=== PATIENT | male | born 1975 | race Caucasian/White ===

== ENCOUNTER 2017-11-15 22:35 | Emergency (ER) | payer MEDICAID ==
[~2017-11-15] VITALS: Ht 180.3 cm; Wt 102.3 kg
[~2017-11-15 22:35] MED LIST: BENZ-16 PO
[2017-11-15 22:47] VITALS: BP 143/88
== END 2017-11-15 23:41 | disposition home or self-care (01) ==
LOC: ER 22:35
DX: K40.20 Bilateral inguinal hernia, without obstruction or gangrene, not specified as recurrent (principal); I10 Essential (primary) hypertension; Z88.6 Allergy status to analgesic agent; Z79.899 Other long term (current) drug therapy
CPT/HCPCS: 74176; 99284

== ENCOUNTER 2019-03-20 21:32 | Emergency (ER) | payer MEDICAID ==
[~2019-03-20] VITALS: Ht 180.3 cm; Wt 102.3 kg
[~2019-03-20 21:32] MED LIST changes: +CIPR7.5D RIGHT EAR
[2019-03-20] MEDS ORDERED: HYDR25SU48 RC (22:53)
[2019-03-20] MEDS ORDERED: PHEN57OI23 PR (22:53)
[2019-03-20] MEDS ORDERED: acetaminophen 325mg tablet PO ONE (22:55)
[2019-03-20] MEDS ORDERED: aspirin 325mg tablet PO ONE (22:55)
[2019-03-20 23:09] VITALS: BP 165/95
== END 2019-03-20 23:14 | disposition home or self-care (01) ==
LOC: ER 21:32
DX: K64.4 Residual hemorrhoidal skin tags (principal); Z88.6 Allergy status to analgesic agent; Z88.8 Allergy status to other drugs, medicaments and biological substances; Z79.899 Other long term (current) drug therapy
CPT/HCPCS: 99283

== ENCOUNTER 2021-08-02 22:32 | Emergency (ER) | payer MEDICAID ==
[~2021-08-02] VITALS: Ht 180.3 cm; Wt 91.8 kg
[~2021-08-02 22:32] MED LIST changes: +PHEN57OI23 PR
[2021-08-02 23:15] VITALS: BP 154/105
[2021-08-02] MEDS ORDERED: diphenhydrAMINE 25mg capsule PO ONE (23:40)
== END 2021-08-02 23:57 | disposition home or self-care (01) ==
LOC: ER 22:33
DX: R09.89 Other specified symptoms and signs involving the circulatory and respiratory systems (principal); Z20.822 Contact with and (suspected) exposure to COVID-19; R43.8 Other disturbances of smell and taste; Z88.6 Allergy status to analgesic agent; Z88.1 Allergy status to other antibiotic agents; Z79.2 Long term (current) use of antibiotics; Z79.899 Other long term (current) drug therapy
CPT/HCPCS: 36415; 99283; Q0163; U0003; U0005

== ENCOUNTER 2021-11-30 00:16 | Emergency (ER) | payer MEDICAID ==
[~2021-11-30] VITALS: Ht 180.3 cm; Wt 94.5 kg
[2021-11-30 00:45] VITALS: BP 158/110
--- NOTE | 2021-11-30 01:16 | NUR ---
Pt roomed to bed 8. Warm blanket and pillow provided. Pt pink, no acute/resp distress. Bed in lowest position, wheels locked, rail 2/2 up. Pt laying supine. Pt able to reposition self prn. Will continue to monitor for acute changes and needs.
[2021-11-30] MEDS ORDERED: PRAZ2CAP2 PO (01:22)
[2021-11-30] MEDS ORDERED: QUET300T72 PO (01:22)
[2021-11-30] MEDS ORDERED: DIVA500T9 PO (01:22)
[2021-11-30] MEDS ORDERED: QUET300T20 PO (01:22)
[2021-11-30] MEDS ORDERED: PROP20TA6 PO (01:22)
[2021-11-30] MEDS ORDERED: ZOLP5TAB8 PO (01:22)
[2021-11-30] MEDS ORDERED: PRAZ1CAP5 PO (01:22)
[2021-11-30] MEDS ORDERED: KEN0.1O TOP (01:22)
[2021-11-30] MEDS ORDERED: GABA-530 PO (01:22)
[2021-11-30] MEDS ORDERED: GENT5DRO4 EACHEYE (01:22)
[2021-11-30] MEDS ORDERED: FLUV100T21 PO (01:22)
[2021-11-30] MEDS ORDERED: proparacaine 0.5% ophthalmic drops 15ml RIGHTEYE ONE (01:35)
[2021-11-30] MEDS ORDERED: gentamicin 0.3% ophthalmic drops 5ML EACHEYE ONE (01:35)
--- NOTE | 2021-11-30 01:54 | NUR ---
Pt pink, no acute/resp distress. Bed in lowest position, wheels locked, rail 2/2 up. Pt laying supine. Pt able to reposition self prn. Will continue to monitor for acute changes and needs.
== END 2021-11-30 02:40 | disposition home or self-care (01) ==
LOC: ER 00:17
DX: H10.9 Unspecified conjunctivitis (principal); Z20.822 Contact with and (suspected) exposure to COVID-19; H10.021 Other mucopurulent conjunctivitis, right eye; Z88.6 Allergy status to analgesic agent; Z88.1 Allergy status to other antibiotic agents; Z79.2 Long term (current) use of antibiotics; Z79.899 Other long term (current) drug therapy
CPT/HCPCS: 87502; 87503; 87635; 99283; C9803

== ENCOUNTER 2021-12-05 00:15 | Emergency (ER) | payer MEDICAID ==
[~2021-12-05] VITALS: Ht 180.3 cm; Wt 95.5 kg
[~2021-12-05 00:15] MED LIST changes: +DIVA500T9 PO; +FLUV100T21 PO; +GABA-530 PO; +GENT5DRO4 EACHEYE; +KEN0.1O TOP; +PRAZ1CAP5 PO; +PRAZ2CAP2 PO; +PROP20TA6 PO; +QUET300T20 PO; +QUET300T72 PO; +ZOLP5TAB8 PO
[2021-12-05] MEDS ORDERED: predniSONE 20 mg tablet PO ONE (02:35)
[2021-12-05] MEDS ORDERED: ACYC-129 PO (02:37)
[2021-12-05 03:18] VITALS: BP 141/93
== END 2021-12-05 03:19 | disposition home or self-care (01) ==
LOC: ER 00:16
DX: R21 Rash and other nonspecific skin eruption (principal); H92.02 Otalgia, left ear; Z88.6 Allergy status to analgesic agent; Z88.1 Allergy status to other antibiotic agents; Z79.899 Other long term (current) drug therapy
CPT/HCPCS: 99283; J7512

== ENCOUNTER 2023-03-29 22:53 | Emergency (ER) | payer MEDICAID ==
[~2023-03-29] VITALS: Ht 180.3 cm; Wt 75.0 kg
[~2023-03-29 22:53] MED LIST changes: -GENT5DRO4 EACHEYE; +GENT5DRO7 EACHEYE; -QUET300T72 PO; +QUET300T91 PO
[2023-03-30 00:13] LABS: ALANINE AMINOTRANSFERASE 10 U/L (12-78); ALBUMIN 3.9 G/DL (3.4-5.0); ALKALINE PHOSPHATASE 78 IU/L (46-116); ANION GAP 11 (8-16); ASPARTATE AMINO TRANSFERASE 14 U/L (10-37); BILIRUBIN,TOTAL 0.4 MG/DL (0.1-1.0); BLOOD UREA NITROGEN 16 MG/DL (7-18); BUN/CREATININE RATIO 15.1 (10.0-20.0); CALCIUM 9.3 MG/DL (8.5-10.1); CHLORIDE 106 MMOL/L (99-107); CREATININE 1.06 MG/DL (0.60-1.10); ETHANOL < 10 MG/DL (<10); GLUCOSE 123 MG/DL (70-104); POTASSIUM 3.3 MMOL/L (3.5-5.1); SODIUM 142 MMOL/L (135-145); TOTAL CARBON DIOXIDE 25.1 MMOL/L (24-32); TOTAL PROTEIN 7.7 G/DL (6.4-8.2); eCRCL 91 ML/MIN; eGFR 75 ML/MIN
[2023-03-30 00:36] LABS: BASOPHILS % (AUTO) 0.5 % (0-1); EOSINOPHILS % (AUTO) 0 % (0-6); HEMATOCRIT 41.2 % (42.0-52.0); LYMPHOCYTES # (AUTO) 1.6 X10'3 (1.1-4.8); LYMPHOCYTES % (AUTO) 21.5 % (21-51); MEAN CORPUSCULAR VOLUME 79.5 FL (78-98); MEAN PLATELET VOLUME 8.1 FL (7.4-10.4); MONOCYTES # (AUTO) 0.5 X10'3 (0-0.9); MONOCYTES % (AUTO) 6.5 % (2-12); NEUTROPHILS # (AUTO) 5.4 X10'3 (1.8-7.7); NEUTROPHILS % (AUTO) 71.5 % (42-75); PLATELET COUNT 201 X10'3 (140-440); RED BLOOD COUNT 5.18 X10'6 (4.70-6.10); RED CELL DISTRIBUTION WIDTH 14.8 % (11.5-14.5); WHITE BLOOD COUNT 7.5 X10'3 (4.5-11.0)
[2023-03-30] MEDS ORDERED: temazepam 15mg capsule PO STA (02:03)
[2023-03-30] MEDS ORDERED: QUET300T2 PO (02:03)
[2023-03-30 05:53] VITALS: BP 140/86; PULSE 90; TEMP 98.6; O2SAT 99
--- NOTE | 2023-03-30 12:00 | NUR ---
Patient eating a sandwich. No distress observed. Continue to monitor.
[2023-03-30 12:20] LABS: URINE AMPHETAMINE SCREEN NEGATIVE (Neg); URINE BARBITUATE SCREEN NEGATIVE (Neg); URINE BENZODIAZEPINES SCREEN NEGATIVE (Neg); URINE CANNABINOID SCREEN NEGATIVE (Neg); URINE COCAINE SCREEN NEGATIVE (Neg); URINE METHADONE SCREEN NEGATIVE (Neg); URINE OPIATE SCREEN NEGATIVE (Neg); URINE PHENCYCLIDINE SCREEN NEGATIVE (Neg)
[2023-03-30 12:21] LABS: BILIRUBIN,URINE NEGATIVE (Neg); CLARITY,URINE SLIGHTLY CLOUDY (Clear); COLOR,URINE YELLOW (Yellow); GLUCOSE, URINE NEGATIVE (Neg); KETONES,URINE NEGATIVE (Neg); LEUKOCYTE ESTERASE ,URINE NEGATIVE (Neg); NITRITES, URINE NEGATIVE (Neg); OCCULT BLOOD,URINE NEGATIVE (Neg); PROTEIN,URINE NEGATIVE (Neg); UROBILINOGEN,URINE 0.2 E.U/dL (0.2-1.0)
[2023-03-30 12:23] LABS: UA COLLECTION TYPE CLN CATCH MIDSTREAM
[2023-03-30 12:25] VITALS: RESP 16
[2023-03-30 12:36] LABS: BACTERIA,URINE FEW /HPF (Neg); MUCUS STRANDS MANY /LPF (Neg); RBC,URINE NONE SEEN /HPF (0-2); SQUAMOUS EPITHELIAL CELL,UR FEW /LPF (FEW); WBC,URINE 0-4 /HPF (0-4)
--- NOTE | 2023-03-30 12:53 | NUR ---
Packet faxed to [facility].
--- NOTE | 2023-03-30 13:44 | NUR ---
Patient eating his late lunch. No distress observed. Continue to monitor.
--- NOTE | 2023-03-30 13:50 | NUR ---
Ronak [facility], evaluating patient. No distress observed. Continue to monitor.
[2023-03-30] MEDS ORDERED: quetiapine fumarate ER 300mg tablet PO SCH (21:00)
== END 2023-03-30 14:00 | disposition home or self-care (01) ==
LOC: EEVIPCON 22:54 → ER 22:54
DX: F32.A Depression, unspecified (principal); Z20.822 Contact with and (suspected) exposure to COVID-19; R11.10 Vomiting, unspecified; R45.851 Suicidal ideations; Z88.8 Allergy status to other drugs, medicaments and biological substances; Z88.1 Allergy status to other antibiotic agents; Z79.899 Other long term (current) drug therapy; G47.9 Sleep disorder, unspecified
CPT/HCPCS: 36415; 80053; 80305; 80320; 81001; 85025; 87811; 99284

== ENCOUNTER 2025-07-21 21:22 | Emergency (ER) | payer MEDICAID ==
[~2025-07-21 21:22] MED LIST changes: -BENZ-16 PO; -CIPR7.5D RIGHT EAR; -DIVA500T9 PO; -FLUV100T21 PO; -GABA-530 PO; -GENT5DRO7 EACHEYE; -KEN0.1O TOP; -PHEN57OI23 PR; -PRAZ1CAP5 PO; -PRAZ2CAP2 PO; -PROP20TA6 PO; +QUET300T2 PO; -QUET300T20 PO; -QUET300T91 PO; -ZOLP5TAB8 PO
== END 2025-07-21 21:59 | disposition left against medical advice (07) ==
LOC: ER 21:23
DX: R06.02 Shortness of breath (principal); R05.9 Cough, unspecified; R07.9 Chest pain, unspecified; J11.1 Influenza due to unidentified influenza virus with other respiratory manifestations; Z88.1 Allergy status to other antibiotic agents; Z53.21 Procedure and treatment not carried out due to patient leaving prior to being seen by health care provider